=== PATIENT | male | born 1950 | race Two or more races ===

== ENCOUNTER 2020-06-22 07:40 | Outpatient (CLI) | payer OTHER | END 2020-06-22 08:07 | disposition home or self-care (01) | LOC: NUCLEAR 07:40 | PROVIDERS: ATTEND Internal Medicine | DX: I44.7 Left bundle-branch block, unspecified (principal); I25.10 Atherosclerotic heart disease of native coronary artery without angina pectoris; E11.29 Type 2 diabetes mellitus with other diabetic kidney complication; I65.23 Occlusion and stenosis of bilateral carotid arteries; I70.213 Atherosclerosis of native arteries of extremities with intermittent claudication, bilateral legs | CPT/HCPCS: 78452; 93017; 93922; 93925; A9500 ==

== ENCOUNTER 2020-06-25 08:07 | Outpatient (CLI) | payer OTHER | END 2020-06-25 08:15 | disposition home or self-care (01) | LOC: NUCLEAR 08:07 | PROVIDERS: ATTEND Internal Medicine | DX: I65.23 Occlusion and stenosis of bilateral carotid arteries (principal) ==

== ENCOUNTER 2022-01-24 10:50 | Inpatient (IN) | payer OTHER ==
[~2022-01-24] VITALS: Ht 167.6 cm; Wt 70.8 kg
[2022-01-24] MEDS ORDERED: PROTONIX40 MG PO (11:20)
[2022-01-24] MEDS ORDERED: LIPITOR20 MG PO (11:20)
[2022-01-24] MEDS ORDERED: METFORMIN HCL500 M3 PO (11:21)
--- NOTE | 2022-01-24 11:21 | NUR ---
PTE REFIERE DESDE EL LUNES CON DOLOR ABDOMINAL , NAUSEAS, VOMITOS POR 4 Y DIARREAS.
--- NOTE | 2022-01-24 11:51 | NUR ---
PTE EVALUADO POR EL DR DEJESUS QUIEN ORDENA EL [place]. SE ORIENTA SOBRE EL [place] ORDENADO, LO CUAL REFIERE ENTENDER, SE REALIZAN PRUEBAS DE LABORATORIO Y SE ADMINISTRA MEDICAMENTO NAE ORDEN MEDICA Y SIGUIENDO MEDIDAS ASEPTICAS.
[2022-01-28] MEDS ORDERED: ST. JOSEPH ASPI81 M2 (08:06)
[2022-01-28] MEDS ORDERED: INTEGRA PLUS C1 EAC1 (08:06)
[2022-01-28] MEDS ORDERED: TRELSTAR11.25 M1 (08:06)
[2022-01-28] MEDS ORDERED: CYANOCOBAL1000 MCG/1 (08:06)
[2022-01-28] MEDS ORDERED: METFORMIN HCL500 M4 (08:06)
[2022-01-28] MEDS ORDERED: LUMIGAN2.5 M1 (08:06)
[2022-01-28] MEDS ORDERED: CLOPIDOGREL BIS75 MG (08:07)
[2022-01-28] MEDS ORDERED: ALPHAGAN P5 M2 (08:07)
== END 2022-01-28 17:27 | disposition home or self-care (01) | DRG 386 ==
LOC: ER 10:50 → MEDI 19:12
PROVIDERS: ADMIT Internal Medicine; ATTEND Internal Medicine
PROC: BW21YZZ Computerized Tomography (CT Scan) of Abdomen and Pelvis using Other Contrast (ICD-10-PCS; principal; 2022-01-24)
DX: K51.00 Ulcerative (chronic) pancolitis without complications (principal); A02.0 Salmonella enteritis; E86.0 Dehydration; I25.10 Atherosclerotic heart disease of native coronary artery without angina pectoris; D64.9 Anemia, unspecified; E78.5 Hyperlipidemia, unspecified; E11.9 Type 2 diabetes mellitus without complications; Z79.4 Long term (current) use of insulin; I11.9 Hypertensive heart disease without heart failure

== ENCOUNTER 2022-09-09 07:14 | Outpatient (CLI) | payer OTHER ==
[~2022-09-09 07:14] MED LIST: ALPHAGAN P5 M2; CLOPIDOGREL BIS75 MG; CYANOCOBAL1000 MCG/1; INTEGRA PLUS C1 EAC1; LIPITOR20 MG PO; LUMIGAN2.5 M1; METFORMIN HCL500 M3 PO; METFORMIN HCL500 M4; PROTONIX40 MG PO; ST. JOSEPH ASPI81 M2; TRELSTAR11.25 M1
== END 2022-09-09 07:18 | disposition home or self-care (01) ==
LOC: RAD 07:14
PROVIDERS: ATTEND Internal Medicine Gastroenterology
DX: D50.9 Iron deficiency anemia, unspecified (principal)

== ENCOUNTER 2024-06-24 07:03 | Outpatient (CLI) | payer OTHER | END 2024-06-24 07:04 | disposition home or self-care (01) | LOC: NUCLEAR 07:03 | PROVIDERS: ATTEND Internal Medicine | DX: I11.9 Hypertensive heart disease without heart failure (principal) | CPT/HCPCS: 78452; 93017; A9500 ==

== ENCOUNTER 2025-04-24 09:54 | Outpatient (CLI) | payer OTHER | END 2025-04-24 09:55 | disposition home or self-care (01) | LOC: NUCLEAR 09:54 | PROVIDERS: ATTEND Psychiatry & Neurology Clinical Neurophysiology | DX: G30.1 Alzheimer's disease with late onset (principal) | CPT/HCPCS: 78803; A9557 ==